=== PATIENT | female | born 1980 | race Caucasian/White ===

== ENCOUNTER 2017-10-22 10:57 | Day surgery (SDC) | payer OTHER ==
[2017-10-13 14:32] VITALS: BMI 22.4
[2017-10-22] MEDS ORDERED: oxyCODONE HCL 5 MG TABLET PO PRN ×2 (12:54)
[2017-10-22] MEDS ORDERED: ONDANSETRON 4 MG/2 ML VIAL IVPUSH PRN (12:54)
[2017-10-22] MEDS ORDERED: LACTATED RINGERS SOLUTION 1,000 ML IV SCH (13:00)
[2017-10-22] MEDS ORDERED: ONDANSETRON 4 MG/2 ML VIAL ONE (13:40)
[2017-10-22 17:00] VITALS: BP 116/67; PULSE 60; TEMP 98
--- NOTE | 2017-10-28 13:25 | OP ---
DATE OF OPERATION: 10/22/2017 PREOPERATIVE DIAGNOSIS: Right wrist possible triangular fibrocartilage complex tear. POSTOPERATIVE DIAGNOSIS: Right wrist triangular fibrocartilage complex tear. SURGEON: Chang Landeros MD SURGERY: Right wrist operative arthroscopy with debridement of triangular fibrocartilage complex tear. ANESTHESIA: General. COMPLICATIONS: None. ESTIMATED BLOOD LOSS: Minimal. INDICATION FOR PROCEDURE: The patient is a 37-year-old female with the above finding, indicated for operative treatment. Risks, benefits, and alternatives were discussed. The patient elected to proceed. Proper informed consent was obtained. DESCRIPTION OF PROCEDURE: After proper identification of the patient and the correct operative site, the patient was brought to the operating room, placed supine on the operative table. All prominences were well padded. General anesthesia provided by the anesthesiologist adequate for the procedure. Right upper extremity was prepped and draped in the usual sterile fashion. A well-padded tourniquet was placed as well as a sterile prep. Esmarch bandage to exsanguinate the right upper extremity. Tourniquet was insufflated to 250 mmHg. portals were made. Both portals were made with skin incision. All made with blunt dissection down to the joint capsule, 2.7-mm gravity inflow arthroscope was used. A 2.5-mm full-radius shaver was used as well. The radiocarpal joint was first observed and found to be free of articular defects. Both the distal and radial articular surfaces as well as the proximal carpal row were free of articular defects. There was no tear of the scapholunate ligament and very mild fraying of the lunotriquetral ligament was debrided. There was a complex, partial-thickness tear of the radial and central aspects of the TFCC which was debrided mechanically. Mild erythema was noted ulnarly, but no full-thickness tear was noted. This was debrided with mechanical shaver. Moderate dorsal capsular synovitis was noted, and this was debrided with a mechanical shaver. The wounds were irrigated with saline, repaired with a 5-0 nylon suture. Sterile dressings were applied. The patient was reversed from anesthesia and brought to recovery in stable condition. She tolerated the procedure well. Parul [id number]
== END 2017-10-22 15:55 | disposition home or self-care (01) ==
LOC: FASU 10:57
PROVIDERS: ATTEND Orthopaedic Surgery Hand Surgery
PROC: 0MQ54ZZ Repair Right Wrist Bursa and Ligament, Percutaneous Endoscopic Approach (ICD-10-PCS; principal; 2017-10-22 12:57)
DX: S63.591A Other specified sprain of right wrist, initial encounter (principal); X58.XXXA Exposure to other specified factors, initial encounter; Y93.9 Activity, unspecified; Y92.9 Unspecified place or not applicable
CPT/HCPCS: 84703; 94760

== ENCOUNTER 2022-04-17 10:38 | Day surgery (SDC) | payer OTHER ==
[2022-04-11 09:46] VITALS: BMI 24.1
[2022-04-17] MEDS ORDERED: ONDANSETRON 4 MG/2 ML VIAL ONE (11:42)
[2022-04-17] MEDS ORDERED: LIDOCAINE HCL/PF 2% SDV 5ML VIAL ONE (11:42)
[2022-04-17] MEDS ORDERED: KETOROLAC TROMETHAMINE 30 MG/1 ML VIAL ONE (11:42)
[2022-04-17] MEDS ORDERED: DEXAMETHASONE SOD PHOSPHATE 4 MG/1 ML VIAL ONE (11:42)
[2022-04-17] MEDS ORDERED: MIDAZOLAM HCL 2 MG/2 ML SINGLE DOSE VIAL ONE (11:44)
[2022-04-17] MEDS ORDERED: PROPOFOL 20 ML ONE (11:44)
[2022-04-17] MEDS ORDERED: ROPIVACAINE HCL/PF 100 MG/20 ML VIAL ONE (12:41)
[2022-04-17] MEDS ORDERED: ceFAZolin SODIUM 1 GM VIAL ONE (12:46)
[2022-04-17] MEDS ORDERED: oxyCODONE HCL 5 MG TABLET PO PRN (13:42)
[2022-04-17] MEDS ORDERED: ONDANSETRON 4 MG/2 ML VIAL IVPUSH PRN (13:42)
[2022-04-17] MEDS ORDERED: LACTATED RINGERS SOLUTION 1,000 ML IV SCH (13:45)
[2022-04-17 14:48] VITALS: TEMP 97.5
[2022-04-17 15:11] VITALS: BP 99/60; PULSE 64
== END 2022-04-17 14:55 | disposition home or self-care (01) ==
LOC: FASU 10:38
PROVIDERS: ATTEND Orthopaedic Surgery Hand Surgery
PROC: 0RBN4ZZ Excision of Right Wrist Joint, Percutaneous Endoscopic Approach (ICD-10-PCS; principal; 2022-04-17 13:01)
DX: S63.591A Other specified sprain of right wrist, initial encounter (principal); X58.XXXA Exposure to other specified factors, initial encounter; Y93.9 Activity, unspecified; Y92.9 Unspecified place or not applicable
CPT/HCPCS: 84703; 94760